=== PATIENT | male | born 1950 | race Asian ===

== ENCOUNTER 2016-11-09 06:07 | Day surgery (SDC) | payer MEDICARE, OTHER ==
[~2016-11-09] VITALS: Ht 157.5 cm; Wt 48.2 kg
[2016-11-09] MEDS ORDERED: SODIUM CHLORIDE 0.9% 1,000 ML IV ONE ×2 (06:21→06:30)
[2016-11-09 07:11] LABS: GLUCOSE,POINT OF CARE 91 MG/DL (70-110)
[2016-11-09] MEDS ORDERED: MIDAZOLAM HCL 2 MG/2 ML VIAL ONE (07:51)
[2016-11-09] MEDS ORDERED: FentaNYL CITRATE-PF 100 MCG/2 ML VIAL ONE (07:51)
[2016-11-09] MEDS ORDERED: MethylPREDNISolone SOD SUCC 125 MG/2 ML VIAL IVP ONE (08:30)
[2016-11-09] MEDS ORDERED: MethylPREDNISolone SOD SUCC 125 MG/2 ML VIAL ONE (08:54)
[2016-11-09] MEDS ORDERED: LIDOCAINE HCL 4% 50 ML SOLUTION TP ONE (18:19)
[2016-11-09] MEDS ORDERED: LIDOCAINE HCL 2% 30 ML JELLY TP ONE (18:19)
[2016-11-09] MEDS ORDERED: OXYGEN THERAPY IH SCH (20:00)
== END 2016-11-09 09:50 | disposition home or self-care (01) ==
LOC: SURGERY 06:07
PROVIDERS: ATTEND Internal Medicine Critical Care Medicine
DX: J38.4 Edema of larynx (principal); B37.0 Candidal stomatitis; M54.9 Dorsalgia, unspecified; E11.9 Type 2 diabetes mellitus without complications; Z72.89 Other problems related to lifestyle
CPT/HCPCS: 31623; 31624; 71010; 82962; 87015 ×2; 87070; 87101; 87205; 87220; 88108; 88312; J2250; J2930; J3010; J7030

== ENCOUNTER 2018-07-04 06:25 | Day surgery (SDC) | payer MEDICARE, OTHER ==
[~2018-07-04] VITALS: Ht 157.5 cm; Wt 53.2 kg
[~2018-07-04 06:25] MED LIST: SODIUM CHLORIDE 0.9% 1,000 ML IV ONE
[2018-07-04] MEDS ORDERED: LIDOCAINE 4% 50 ML SOLUTION TP ONE (06:26)
[2018-07-04] MEDS ORDERED: BENZOCAINE 20% 50 MCG/SPRAY 57 GM TP ONE (06:26)
[2018-07-04] MEDS ORDERED: LIDOCAINE 2% 30 ML JELLY TP ONE (06:26)
[2018-07-04] MEDS ORDERED: EPINEPHrine 1:1,000 [1 MG/ML] AMP IM ONE (06:26)
[2018-07-04] MEDS ORDERED: SODIUM CHLORIDE 0.9% 1,000 ML IV ONE (07:00)
[2018-07-04 07:24] LABS: GLUCOMETER DEV NAME(LOC) SDS 5; GLUCOSE,POINT OF CARE 98 MG/DL (70-110)
[2018-07-04] MEDS ORDERED: FentaNYL CITRATE-PF 100 MCG/2 ML VIAL ONE (07:51)
[2018-07-04] MEDS ORDERED: MIDAZOLAM HCL 2 MG/2 ML VIAL ONE (07:51)
[2018-07-04] MEDS ORDERED: MethylPREDNISolone SOD SUCC 125 MG/2 ML VIAL IVP ONE (08:30)
== END 2018-07-04 09:45 | disposition home or self-care (01) ==
LOC: SURGERY 06:25
PROVIDERS: ATTEND Internal Medicine Critical Care Medicine
DX: J38.4 Edema of larynx (principal); B37.0 Candidal stomatitis; J98.09 Other diseases of bronchus, not elsewhere classified; M19.012 Primary osteoarthritis, left shoulder; M19.011 Primary osteoarthritis, right shoulder; M46.04 Spinal enthesopathy, thoracic region; E11.9 Type 2 diabetes mellitus without complications; Z72.89 Other problems related to lifestyle; Z98.890 Other specified postprocedural states
CPT/HCPCS: 31623; 31624; 71045; 82962; 87015; 87070; 87205; 87206; 87220; 88108; 88312; 99152; J0171; J2250; J2930; J3010; J7030

== ENCOUNTER 2021-06-30 07:04 | Day surgery (SDC) | payer MEDICARE, OTHER ==
[~2021-06-30] VITALS: Ht 157.5 cm; Wt 47.7 kg
[2021-06-30] MEDS ORDERED: MIDAZOLAM HCL 5 MG/ML VIAL ONE (07:31)
[2021-06-30] MEDS ORDERED: FentaNYL CITRATE PF 100 MCG/2 ML VIAL ONE (07:31)
[2021-06-30 07:50] LABS: COVID AG,FIA SOURCE NASOPHARYNGEAL
[2021-06-30 08:23] LABS: GLUCOMETER DEV NAME(LOC) SDS.; GLUCOSE,POINT OF CARE 88 MG/DL (70-110)
[2021-06-30] MEDS ORDERED: MethylPREDNISolone SOD SUCC 125 MG/2 ML VIAL ONE (08:59)
[2021-06-30] MEDS ORDERED: CHOL-35 PO (09:44)
[2021-06-30] MEDS ORDERED: TENO25TA PO (09:44)
[2021-06-30] MEDS ORDERED: OMEP20 PO (09:44)
[2021-06-30] MEDS ORDERED: FLUT1BLS IH (09:44)
[2021-06-30] MEDS ORDERED: TAMS-13 PO (09:44)
[2021-06-30] MEDS ORDERED: TRAZ-257 PO (09:44)
[2021-06-30] MEDS ORDERED: GABA-1181 PO (09:44)
[2021-06-30] MEDS ORDERED: CITA-144 PO (09:44)
[2021-06-30] MEDS ORDERED: FLUT16H NASAL (09:44)
[2021-06-30] MEDS ORDERED: MethylPREDNISolone SOD SUCC 125 MG/2 ML VIAL IVP ONE (09:45)
== END 2021-06-30 11:20 | disposition home or self-care (01) ==
LOC: SURGERY 07:04
PROVIDERS: ATTEND Internal Medicine Critical Care Medicine
DX: J38.4 Edema of larynx (principal); B37.0 Candidal stomatitis; I10 Essential (primary) hypertension; E11.9 Type 2 diabetes mellitus without complications; Z72.89 Other problems related to lifestyle; J45.909 Unspecified asthma, uncomplicated; Z87.01 Personal history of pneumonia (recurrent); Z79.899 Other long term (current) drug therapy; Z98.890 Other specified postprocedural states
CPT/HCPCS: 31623; 31624; 71045; 82962; 87015; 87070; 87101; 87205; 87206; 87220; 87426; 88112; 88184; 88185; 88312; C9803; J2250; J2930; J3010

== ENCOUNTER 2021-12-29 06:26 | Day surgery (SDC) | payer MEDICARE, OTHER ==
[~2021-12-29] VITALS: Ht 157.5 cm; Wt 63.6 kg
[~2021-12-29 06:26] MED LIST changes: +CHOL25TA4 PO; +CITA-144 PO; +FLUT16H NASAL; +FLUT1BLS IH; +GABA-1181 PO; +OMEP20 PO; -SODIUM CHLORIDE 0.9% 1,000 ML IV ONE; +TAMS-13 PO; +TENO25TA PO; +TRAZ-257 PO
[2021-12-29] MEDS ORDERED: BENZOCAINE 20% 50 MCG/SPRAY 57 GM TP ONE (06:27)
[2021-12-29] MEDS ORDERED: LIDOCAINE 4% 50 ML SOLUTION TP ONE (06:27)
[2021-12-29] MEDS ORDERED: LIDOCAINE 2% 30 ML JELLY TP ONE (06:27)
[2021-12-29] MEDS ORDERED: SODIUM CHLORIDE 0.9% 1,000 ML IV ONE (06:30)
[2021-12-29] MEDS ORDERED: SODIUM CHLORIDE 0.9% 1,000 ML ONE (06:42)
[2021-12-29 06:45] LABS: COVID AG,FIA SOURCE NASOPHARYNGEAL
[2021-12-29] MEDS ORDERED: MIDAZOLAM HCL 5 MG/ML VIAL ONE (07:20)
[2021-12-29] MEDS ORDERED: FentaNYL CITRATE PF 100 MCG/2 ML VIAL ONE (07:20)
[2021-12-29] MEDS ORDERED: MethylPREDNISolone SOD SUCC 125 MG/2 ML VIAL IVP ONE (09:45)
[2021-12-29] MEDS ORDERED: MethylPREDNISolone SOD SUCC 125 MG/2 ML VIAL ONE (10:12)
[2021-12-29] MEDS ORDERED: OXYGEN THERAPY IH SCH (20:00)
== END 2021-12-29 11:35 | disposition home or self-care (01) ==
LOC: SURGERY 06:26
PROVIDERS: ATTEND Internal Medicine Critical Care Medicine
DX: J38.4 Edema of larynx (principal); B37.0 Candidal stomatitis; I10 Essential (primary) hypertension; Z79.899 Other long term (current) drug therapy
CPT/HCPCS: 31623; 31624; 71045; 87015; 87070; 87101; 87206; 87220; 87426; 88112; 88184; 88185; 88312; C9803; J2250; J2930; J3010; J7030; Z7610

== ENCOUNTER 2022-11-23 06:21 | Day surgery (SDC) | payer MEDICARE, OTHER ==
[~2022-11-23] VITALS: Ht 160 cm; Wt 59.0 kg
[~2022-11-23 06:21] MED LIST changes: -FLUT16H NASAL; +FLUT16SP NASAL
[2022-11-23] MEDS ORDERED: SODIUM CHLORIDE 0.9% 1,000 ML IV ONE (07:00)
[2022-11-23 07:32] LABS: COVID AG,FIA SOURCE NASAL SWAB
[2022-11-23] MEDS ORDERED: SENN-187 PO (08:06)
[2022-11-23] MEDS ORDERED: MIDAZOLAM HCL 2 MG/2 ML VIAL ONE (08:11)
[2022-11-23] MEDS ORDERED: FentaNYL CITRATE PF 100 MCG/2 ML VIAL ONE (08:11)
[2022-11-23] MEDS ORDERED: SODIUM CHLORIDE 0.9% 1,000 ML ONE (08:20)
[2022-11-23] MEDS ORDERED: MethylPREDNISolone SOD SUCC 125 MG/2 ML VIAL ONE (09:30)
[2022-11-23] MEDS ORDERED: MethylPREDNISolone SOD SUCC 125 MG/2 ML VIAL IVP ONE (10:00)
== END 2022-11-23 11:25 | disposition home or self-care (01) ==
LOC: SURGERY 06:21
PROVIDERS: ATTEND Internal Medicine Critical Care Medicine
DX: R05.3 Chronic cough (principal); R91.1 Solitary pulmonary nodule; J98.09 Other diseases of bronchus, not elsewhere classified; Z20.822 Contact with and (suspected) exposure to COVID-19
CPT/HCPCS: 31623; 88112; 87206; 87101; 87220; 87070; 87186; 31624; 94640; 71045; 87015; 87426; J3010; J2250; J2930; J7030; C9803

== ENCOUNTER 2024-06-26 07:09 | Day surgery (SDC) | payer MEDICARE, OTHER ==
[~2024-06-26] VITALS: Ht 157.5 cm; Wt 54.5 kg
[~2024-06-26 07:09] MED LIST changes: +SENN-376 PO; +SODIUM CHLORIDE 0.9% 1,000 ML ONE; -TAMS-13 PO; +TAMS0.4C94 PO
[2024-06-26] MEDS ORDERED: LIDOCAINE 4% 50 ML SOLUTION TP ONE (07:10)
[2024-06-26] MEDS ORDERED: BENZOCAINE 20% 50 MCG/SPRAY 57 GM TP ONE (07:10)
[2024-06-26] MEDS ORDERED: LIDOCAINE 2% 11 ML JELLY TP ONE (07:10)
[2024-06-26] MEDS ORDERED: FentaNYL CITRATE PF 100 MCG/2 ML VIAL ONE (08:50)
[2024-06-26] MEDS ORDERED: MIDAZOLAM HCL 2 MG/2 ML VIAL ONE (08:50)
[2024-06-26] MEDS: SODIUM CHLORIDE 0.9% 1,000 ML IV ONE (08:58)
[2024-06-26 09:46] LABS: GLUCOMETER DEV NAME(LOC) SDS.; GLUCOSE,POINT OF CARE 113 MG/DL (70-110)
[2024-06-26] MEDS ORDERED: MethylPREDNISolone SOD SUCC 125 MG/2 ML VIAL ONE (09:51)
[2024-06-26 09:54] VITALS: PULSE 56; RESP 16; O2SAT 100
[2024-06-26] MEDS: MethylPREDNISolone SOD SUCC 125 MG/2 ML VIAL IVP ONE (10:42)
== END 2024-06-26 13:15 | disposition home or self-care (01) ==
LOC: SURGERY 07:09
PROVIDERS: ATTEND Internal Medicine Critical Care Medicine
DX: R05.3 Chronic cough (principal); R06.2 Wheezing; R49.0 Dysphonia; R04.2 Hemoptysis; J47.9 Bronchiectasis, uncomplicated; J38.4 Edema of larynx; B37.0 Candidal stomatitis; I10 Essential (primary) hypertension; E78.00 Pure hypercholesterolemia, unspecified; Z79.82 Long term (current) use of aspirin; Z79.899 Other long term (current) drug therapy; Z98.818 Other dental procedure status; Z98.890 Other specified postprocedural states
CPT/HCPCS: 31623; 82962; 87206; 87101; 87220; 87070; 31624; 71045; 87015; J3010; J2250; J2919; J7030; 88108; Z7610